=== PATIENT | female | born 1965 | race Caucasian/White ===

== ENCOUNTER 2017-03-14 18:02 | Emergency (ER) | payer OTHER ==
[~2017-03-14] VITALS: Ht 165.1 cm; Wt 68.5 kg
[~2017-03-14 18:02] MED LIST: FLUT1DSK4 IH; LORA-476 PO; METF500T PO; MSCON30 PO; PRED10TA5 PO; PRON INH; SPIMDI INH
[2017-03-14 18:29] VITALS: BP 139/80
--- NOTE | 2017-03-14 19:16 | NUR ---
PATIENT TO BED 11 AT THIS TIME.
[2017-03-14] MEDS ORDERED: CEPHALEXIN 500 MG CAP PO ONE (19:50)
[2017-03-14] MEDS ORDERED: ALBUTEROL SULFATE/IPRATROPIU 3 ML SOL IH ONE (19:50)
[2017-03-14] MEDS ORDERED: SULFAMETH/TRIMETH DS 800/160MG 1 TAB PO ONE (19:50)
[2017-03-14] MEDS ORDERED: methylPREDNISolone SS 125 MG/2 ML VIAL IM ONE (19:50)
--- NOTE | 2017-03-14 20:00 | NUR ---
51Y/F PRESENTS TO ER C/O ABCESS. PT HAS OPEN ABCESS TO LEFT ARM DRAINING PUSS, RT LEG ABCESS NO OPEN SKIN, REDDENED AROUND ABCESS. CMS INTACT. PAIN 8/10, NON RADIATING. SMALL ULCERS TO BOTH SIDES OF TONGUE PT STATES SHE HAS BROKEN TOOTH. PT TOOK MORPHINE AT HOME AROUND 11AM. PT FEELS DIZZY AND NAUSOUS, AA&OX4, IN BED, PRECISION GRINDER EXTERNAL AT BEDSIDE.
--- NOTE | 2017-03-14 20:05 | NUR ---
Breathing treatment administered at bedside by respiratory therapist.
[2017-03-14] MEDS ORDERED: LIDOCAINE/EPI 2% 1:100000 20 ML VIAL INJ ONE (20:14)
--- NOTE | 2017-03-14 20:26 | NUR ---
Dr. Alfredo at bedside for incision and drainage of abscess.
[2017-03-14 20:53] VITALS: BP 133/81
--- NOTE | 2017-03-14 20:53 | NUR ---
Patient discharged with v/s stable. Written and verbal after care instructions given and explained. Patient alert, oriented and verbalized understanding of instructions. Ambulatory with steady gait. All questions addressed prior to discharge. ID band removed. Patient advised to follow up with PMD. Rx of KEFLEX 500MG, BACTRIM 800MG given. Patient educated on indication of medication including possible reaction and side effects. Opportunity to ask questions provided and answered.
== END 2017-03-14 20:53 | disposition home or self-care (01) ==
LOC: MED 18:02
DX: L02.413 Cutaneous abscess of right upper limb (principal); L02.416 Cutaneous abscess of left lower limb; J44.9 Chronic obstructive pulmonary disease, unspecified; E11.9 Type 2 diabetes mellitus without complications; Z71.6 Tobacco abuse counseling; Z79.84 Long term (current) use of oral hypoglycemic drugs; Z79.899 Other long term (current) drug therapy; Z88.0 Allergy status to penicillin; Z88.8 Allergy status to other drugs, medicaments and biological substances
CPT/HCPCS: 10061; 94640; 96372; 99284; J2001; J2930; J7620

== ENCOUNTER 2017-05-18 08:41 | Emergency (ER) | payer OTHER ==
[~2017-05-18] VITALS: Ht 165.1 cm; Wt 68.0 kg
[2017-05-18 08:43] VITALS: BP 139/76
--- NOTE | 2017-05-18 08:52 | NUR ---
PT AMBULATED TO BED 11 Addendum: 05/18/17 at 0853 by MEDHT PT ROLLED IN WHEELCHAIR BY POTATO GRADER TO BED 11
--- NOTE | 2017-05-18 08:55 | NUR ---
patient is a 51 year old female brought in by private vehicle for c/o left leg cellulitis x 3 days. patient is alert and oriented x 4. respirations are even and unlabored. patient denies any dyspnea, n,v,d, fever or chills. per patient cough present, normal per patient. observed left leg redness, warmth to area. intact abscess observed. tender when palpated. awaiting md evaluation.
[2017-05-18] MEDS ORDERED: HYDROmorphone 1 MG/ML AMP IM ONE (09:15)
[2017-05-18] MEDS: CLINDAMYCIN 600 MG/4 ML VIAL IM ONE ×2 (09:50→09:57)
[2017-05-18] MEDS ORDERED: LIDOCAINE MPF 1% - **ER/OR** 5 ML ONE (10:28)
[2017-05-18] MEDS ORDERED: LIDOCAINE 1% 500 MG/50 ML VIAL INJ SCH (10:35)
--- NOTE | 2017-05-18 11:25 | NUR ---
Dr. Graham at bedside for I&D procedure.
[2017-05-18] MEDS ORDERED: NEOMYCIN/POLYMYXIN/BACITRACIN 0.9 GM/1 PKT TP ONE (11:33)
[2017-05-18 11:56] VITALS: BP 139/76
--- NOTE | 2017-05-18 11:57 | NUR ---
Patient discharged with v/s stable. Written and verbal after care instructions given and explained. patient's hr observed to be 118, patient is asymptomatic and states this is normal for her. Dr. Graham made aware. Patient alert, oriented and verbalized understanding of instructions. Wheel Chair Assisted with to car by caregiver. All questions addressed prior to discharge. ID band removed. Patient advised to follow up with PMD. Rx of Clindamycin, Septra, and Tramadol given. Patient educated on indication of medication including possible reaction and side effects. Educated patient on importance of follow up with primary for wound check, both patient and caregiver verbalizes understanding. Opportunity to ask questions provided and answered.
--- NOTE | 2017-05-21 16:11 | NUR ---
ADDENDUM: LT. LEG ABSCESS CX. RESULTS: MRSA. REFERRED TO DR. BRODERICK,NO FARTHER TX. PATIENT DISCHARGED WITH CLINDAMYCIN AND SEPTRA
== END 2017-05-18 11:57 | disposition home or self-care (01) ==
LOC: MED 08:41
DX: L02.416 Cutaneous abscess of left lower limb (principal); J45.909 Unspecified asthma, uncomplicated; J44.9 Chronic obstructive pulmonary disease, unspecified; E11.9 Type 2 diabetes mellitus without complications; F17.210 Nicotine dependence, cigarettes, uncomplicated; F11.90 Opioid use, unspecified, uncomplicated; F12.90 Cannabis use, unspecified, uncomplicated; Z79.899 Other long term (current) drug therapy; Z88.0 Allergy status to penicillin; Z88.5 Allergy status to narcotic agent; Z79.84 Long term (current) use of oral hypoglycemic drugs
CPT/HCPCS: 10060; 87070; 87075; 90471; 90715; 96372; 99284; J1170; J2001; J3490; 87186

== ENCOUNTER 2017-05-21 10:24 | Emergency (ER) | payer OTHER ==
[~2017-05-21] VITALS: Ht 165.1 cm; Wt 66.2 kg
[2017-05-21 11:06] VITALS: BP 119/77
--- NOTE | 2017-05-21 11:09 | NUR ---
PT AMBULATES BACK TO THE LOBBY
== END 2017-05-21 12:40 | disposition left against medical advice (07) ==
LOC: MED 10:24
DX: Z53.21 Procedure and treatment not carried out due to patient leaving prior to being seen by health care provider (principal)

== ENCOUNTER 2017-07-28 09:29 | Inpatient (IN) | payer OTHER ==
[~2017-07-28] VITALS: Ht 165.1 cm; Wt 68.9 kg
--- NOTE | 2017-07-28 09:32 | NUR ---
Patient transferred to bed 3 via wheelchair by tech. Patient accompanied by family. RN evaluating patient at bedside. Addendum: 07/28/17 at 1335 by [facility] Patient will be admitted to care of DR BLANDON. Admited to TELE. Will go to room 113. Belongings list completed. Report to FERNANDO GREGORY & MARTA GREGORY.
--- NOTE | 2017-07-28 09:32 | NUR ---
Dr. Miller evaluating patient at bedside.
[2017-07-28 09:33] VITALS: BP 167/106
--- NOTE | 2017-07-28 09:33 | NUR ---
Note undone in EDM - 07/28/17 at 0954 by [email or web address] 51/F BIB SON W/ C/O SOB X2 DAYS; PT STATES SHE WAS SEEN AT [facility] YESTERDAY FOR SAME S/SX AND WAS DISCHARGED; PT ON HOME O2 NASAL CANULA 2L. HX COPD, HTN, DM, PNA X1 MONTH AGO, BACK INJURY. DENIES N/V/D; SKIN IS PINK/WARM/DRY; AAOX4 WITH EVEN AND STEADY GAIT; LUNGS WHEEZING BL.CP <3 SEC. PT DENIES ANY FEVER, CP,OR COUGH AT THIS TIME; PATIENT STATES PAIN OF 0/10 AT THIS TIME. PATIENT POSITIONED FOR COMFORT; HOB ELEVATED; BEDRAILS UP X2; BED DOWN. ER MD MADE AWARE OF PT STATUS.
--- NOTE | 2017-07-28 09:33 | NUR ---
51/F BIB SON W/ C/O SOB X2 DAYS; PT STATES SHE WAS SEEN AT [facility] YESTERDAY FOR SAME S/SX AND WAS DISCHARGED; PT ON HOME O2 NASAL CANULA 2L. HX COPD, HTN, DM, PNA X1 MONTH AGO, BACK INJURY. DENIES N/V/D; SKIN IS PINK/WARM/DRY; AAOX4 , AMB W/ W/C; LUNGS WHEEZING BL.CP <3 SEC. PT DENIES ANY FEVER, CP,OR COUGH AT THIS TIME; PATIENT STATES PAIN OF 0/10 AT THIS TIME. PATIENT POSITIONED FOR COMFORT; HOB ELEVATED; BEDRAILS UP X2; BED DOWN. ER MD MADE AWARE OF PT STATUS.
[2017-07-28] MEDS ORDERED: MAG SULF 2000 MG/WATER PREMIX 50 ML IV ONE (09:40)
[2017-07-28] MEDS ORDERED: ALBUTEROL 0.083% 2.5 MG/3 ML NEBU INH ONE (09:40)
[2017-07-28] MEDS ORDERED: CEFEPIME 2,000 MG in DEXTROSE 5% 100 ML IV ONE (09:40)
[2017-07-28] MEDS ORDERED: methylPREDNISolone SS 125 MG/2 ML VIAL IVP ONE (09:40)
[2017-07-28] MEDS ORDERED: LEVOFLOXACIN 750 MG/D5W PREMIX 150 ML IV ONE (09:40)
[2017-07-28] MEDS ORDERED: NACL 0.9% 1,000 ML IV ONE (09:40)
[2017-07-28] MEDS ORDERED: IPRATROPIUM 0.02% 0.5 MG/2.5 ML NEBU INH ONE (09:40)
[2017-07-28] MEDS ORDERED: VANCOMYCIN 1,000 MG in DEXTROSE 5% 250 ML IV ONE (09:40)
[2017-07-28] MEDS ORDERED: ALBUTEROL SULFATE/IPRATROPIU 3 ML SOL IH ONE (09:45)
--- NOTE | 2017-07-28 09:49 | NUR ---
RT AT BEDSIDE FOR BREATHING TREATMENT.
--- NOTE | 2017-07-28 09:53 | NUR ---
PT IS AWAKE AND ALERT. NOT IN DISTRESS. PT ON 2 L NC WITH SPO2 OF 98%. TOOK O2 OFF. ON ROOM AIR PT'S SPO2 IS 97%. HHN TX OF DUONEB IS GIVEN. BS EXP WHEEZES. WILL MONITOR.
--- NOTE | 2017-07-28 10:00 | NUR ---
EKG AT BEDSIDE.
[2017-07-28] MEDS ORDERED: CEFEPIME 2,000 MG VIAL IV ONE (10:22)
[2017-07-28] MEDS ORDERED: VANCOMYCIN 1,000 MG VIAL ONE (10:24)
[2017-07-28 10:28] LABS: BASOPHILS % (AUTO) 0.2 % (0.0-2.0); HEMATOCRIT 40.8 % (36-48); LYMPHOCYTES # (AUTO) 0.5 K/uL (2.5-16.5); MEAN CORPUSCULAR HEMOGLOBIN 27 pg (27-31); MEAN CORPUSCULAR HGB CONC 32 g/dL (33-37); MEAN CORPUSCULAR VOLUME 86.1 fL (80-94); MONOCYTES # (AUTO) 0.8 K/uL (0.8-1.0); MONOCYTES % (AUTO) 4.2 % (1.7-9.3); NEUTROPHILS # (AUTO) 16.7 K/uL (1.8-7.7); NEUTROPHILS % (AUTO) 92.6 % (42.2-75.2); PLATELET COUNT (AUTO) 165 K/uL (140-450); RED BLOOD CELL COUNT(AUTO) 4.75 MIL/uL (4.20-5.40); RED CELL DISTRIBUTION WIDTH 16.3 % (11.6-13.7)
[2017-07-28 10:44] LABS: PROTHROMBIN TIME 10.9 secs (10.8-13.4)
[2017-07-28 10:58] LABS: ALBUMIN 3.1 g/dL (3.4-5.0); ANION GAP 10.7 (8-16); CARBON DIOXIDE 33.5 mmol/L (21-32); CREATININE 1.1 mg/dL (0.6-1.3); MAGNESIUM 2.3 mg/dL (1.8-2.4); PHOSPHORUS 3.7 mg/dL (2.5-4.9); POTASSIUM 5.2 mmol/L (3.5-5.1); TOTAL BILIRUBIN 0.3 mg/dL (0.0-1.0)
[2017-07-28 11:15] LABS: APPEARANCE,URINE SL CLOUDY (CLEAR); BILIRUBIN,URINE NEGATIVE (NEGATIVE); BLOOD, URINE NEGATIVE (NEGATIVE); COLOR,URINE YELLOW (YELLOW); LEUKOCYTE ESTERASE ,URINE NEGATIVE (NEGATIVE); NITRITE, URINE NEGATIVE (NEGATIVE); UGLUCOSE NEGATIVE (NEGATIVE)
[2017-07-28] MEDS ORDERED: ONDANSETRON 4 MG/2 ML VIAL IVP ONE (11:15)
[2017-07-28] MEDS ORDERED: MORPHINE SULFATE 4 MG/ML SYR IVP ONE (11:15)
[2017-07-28 11:22] LABS: BARBITURATE, URINE NEG. ng/ml (NEG <=200); BENZODIAZEPINE, URINE NEG. ng/mL (NEG <=200); CANNABINOID, URINE NEG. ng/mL (NEG <=50); COCAINE, URINE NEG. ng/mL (NEG <=300); OPIATE, URINE POS. ng/mL (NEG <=2000); PHENCYCLIDINE SCREEN,URINE NEG. ng/mL (NEG <=25)
--- NOTE | 2017-07-28 12:24 | NUR ---
LACTIC ACID 5.2 H ; REPORT TO DR SOLANO .
[2017-07-28] MEDS ORDERED: NACL 0.9% 2,000 ML IV ONE (12:25)
[2017-07-28] MEDS: NACL 0.9% 1,000 ML IV SCH ×2 (12:43→22:43)
[2017-07-28] MEDS ORDERED: ONDANSETRON 4 MG/2 ML VIAL IVP PRN (12:45)
[2017-07-28] MEDS ORDERED: ACETAMINOPHEN 325 MG TAB PO PRN (12:45)
[2017-07-28] MEDS ORDERED: HYDROcodone/APAP 5/325 MG 1 TAB TAB PO PRN ×2 (12:45)
[2017-07-28] MEDS ORDERED: LORazepam 1 MG TAB PO PRN (12:45)
--- NOTE | 2017-07-28 13:13 | NUR ---
ABG DONE WITH NO INCIDENT. RESULTS GIVEN TO ED SECHRIST.
[2017-07-28 14:00] VITALS: BP 152/106
--- NOTE | 2017-07-28 14:00 | NUR ---
PT ADMITTED TO [facility] FROM ER . ER NURSE SUMMER GAVE REPORT AT BEDSIDE. PT AMBULATED TO BED FROM [facility]. PT ANXIOUS. APPLIED O2 NC AT 2LPM . O2 SAT 98%. RR 26 AT TIME. PT LUNGS SOUND WHEEZING BILATERALLY AT UPPER LOBES. PT APPEARED FLUSHED, HAS MULTIPLE BRUISES BUE AND BLE. 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 OBTAINED MEDICAL HX FROM PT AND PT MANUFACTURING WORKER. PT USED RESTROOM FOR URINATION. VOIDED X1. PT PUT BACK ON BED. PT HAS NO SIGN OF DISTRESS ATH THIS TIME. PT ON CONTINUOUS PULSE OXIMETER. CALL LIGHT WITHIN PT REACH. PT PROVIDED EDUCATION REGARDING COPD AND SOB. WILL CONTINUE TO MONITOR.
[2017-07-28] MEDS: IPRATROPIUM 0.02% 0.5 MG/2.5 ML NEBU IH SCH ×2 (14:07→19:49)
[2017-07-28] MEDS: ALBUTEROL 0.083% 2.5 MG/3 ML NEBU IH SCH ×2 (14:08→19:49)
[2017-07-28] MEDS: MORPHINE TAB ER 30 MG TABER PO SCH ×2 (14:17→17:30)
[2017-07-28 16:00] VITALS: BP 158/97
[2017-07-28] MEDS ORDERED: METO-485 PO (17:17)
[2017-07-28] MEDS ORDERED: LORA-476 PO (17:17)
[2017-07-28] MEDS ORDERED: PRED20TA5 PO (17:17)
[2017-07-28] MEDS ORDERED: HAL1 PO (17:17)
[2017-07-28] MEDS ORDERED: CALER120 PO (17:17)
[2017-07-28] MEDS: LEVOFLOXACIN 500 MG/D5W PREMIX 100 ML IV SCH (17:28)
[2017-07-28] MEDS: methylPREDNISolone SS 125 MG/2 ML VIAL IVP SCH ×2 (17:30→23:36)
[2017-07-28] MEDS ORDERED: INSULIN LISPRO SLIDING SCALE 100 UNITS/ML VIAL SUBQ PRN (17:50)
--- NOTE | 2017-07-28 19:05 | NUR ---
ENDORSED PT TO TIE IN MACHINE OPERATOR NURSE AT BEDSIDE FOR CONTINUITY OF CARE. PT IN STABLE CONDITION.
--- NOTE | 2017-07-28 19:05 | NUR ---
RECEIVED PATIENT LYING IN BED ASLEEP. BED IN LOW POSITION. BED ALARM ON. CALL LIGHT WITHIN REACH. WILL CONTINUE TO MONITOR.
[2017-07-28 20:00] VITALS: BP 139/88
[2017-07-28] MEDS: BLOOD GLUCOSE MONITORING 1 DEV DEV FS SCH (21:18)
--- NOTE | 2017-07-28 21:20 | NUR ---
ASSISTING PATIENT TO THE BATHROOM. PATIENT IS AMBULATORY, COOPERATIVE. DISCUSS ABOUT THE PLAN OF CARE. WILL CONTINUE TO MONITOR.
[2017-07-29] VITALS: BP 156/108
[2017-07-29] MEDS: ALBUTEROL 0.083% 2.5 MG/3 ML NEBU IH SCH ×3 (02:12→13:25)
[2017-07-29] MEDS: IPRATROPIUM 0.02% 0.5 MG/2.5 ML NEBU IH SCH ×3 (02:12→13:24)
[2017-07-29] MEDS: NACL 0.9% 1,000 ML IV SCH (03:26)
[2017-07-29 04:00] VITALS: BP 150/105
--- NOTE | 2017-07-29 05:45 | NUR ---
VITAL SIGN TAKEN AND MEDICATION GIVEN. BREATHING DONE BY RT. WILL CONTINUE TO MONITOR.
[2017-07-29] MEDS: ALBUTEROL 0.083% 2.5 MG/3 ML NEBU IH PRN ×2 (05:55→16:02)
[2017-07-29] MEDS: methylPREDNISolone SS 125 MG/2 ML VIAL IVP SCH ×2 (06:02→12:30)
[2017-07-29] MEDS: BLOOD GLUCOSE MONITORING 1 DEV DEV FS SCH ×2 (06:41→11:41)
--- NOTE | 2017-07-29 07:26 | NUR ---
ENDORSEMENT GIVEN TO AM SHIFT NURSE FOR CONTINUITY OF CARE. PATIENT IN STABLE CONDITION.
--- NOTE | 2017-07-29 07:30 | NUR ---
RECEIVED REPORT FROM CANVAS GOODS SUPERVISOR NURSE. PT IS SLEEPING IN BED BUT EASILY AWAKEN, PT AAOX4, AMBULATORY, NO S/S OF RESPIRATORY DISTRESS OR DISCOMFORT NOTED, IV IS ON THE RIGHT HAND, PATENT, INTACT, FLUSHING WELL, PT IS ON O2 2L NC, DISCUSSED PLAN OF CARE WITH PT, PT VERBALIZED UNDERSTANDING, CALL LIGHT WITHIN REACH, WILL CONTINUE TO MONITOR.
[2017-07-29 08:00] VITALS: BP 163/108
[2017-07-29] MEDS: MORPHINE TAB ER 30 MG TABER PO SCH ×2 (09:23→12:30)
--- NOTE | 2017-07-29 09:23 | NUR ---
DUE MEDICATIONS GIVEN, PT TOLERATED WELL, CALL LIGHT WITHIN REACH, WILL CONTINUE TO MONITOR.
--- NOTE | 2017-07-29 11:00 | NUR ---
PATIENT SLEEPING IN BED AT THIS TIME. CALL LIGHT WITHIN REACH.
[2017-07-29] MEDS ORDERED: ROBAC PO (11:31)
[2017-07-29 12:00] VITALS: BP 155/106
[2017-07-29] MEDS ORDERED: hydrALAZINE 25 MG TAB PO PRN (12:05)
[2017-07-29] MEDS ORDERED: SODIUM POLYSTYRENE 15 GM/60 ML UDBTL PO SCH (12:22)
--- NOTE | 2017-07-29 12:30 | NUR ---
DUE MEDICATIONS GIVEN, PT TOLERATED WELL, CALL LIGHT WITHIN REACH.
[2017-07-29 13:43] LABS: BASOPHILS % (AUTO) 0.1 % (0.0-2.0); HEMATOCRIT 37.4 % (36-48); HEMOGLOBIN 11.8 g/dL (12.0-16.0); LYMPHOCYTES # (AUTO) 0.6 K/uL (2.5-16.5); LYMPHOCYTES % (AUTO) 2.8 % (20.5-51.1); MEAN CORPUSCULAR HEMOGLOBIN 27 pg (27-31); MEAN CORPUSCULAR HGB CONC 32 g/dL (33-37); MEAN CORPUSCULAR VOLUME 85.4 fL (80-94); MONOCYTES # (AUTO) 0.4 K/uL (0.8-1.0); MONOCYTES % (AUTO) 2.2 % (1.7-9.3); NEUTROPHILS # (AUTO) 18.7 K/uL (1.8-7.7); NEUTROPHILS % (AUTO) 94.9 % (42.2-75.2); PLATELET COUNT (AUTO) 156 K/uL (140-450); RED BLOOD CELL COUNT(AUTO) 4.39 MIL/uL (4.20-5.40); RED CELL DISTRIBUTION WIDTH 16.1 % (11.6-13.7); WHITE BLOOD COUNT (AUTO) 19.7 K/uL (4.8-10.8)
--- NOTE | 2017-07-29 13:49 | NUR ---
[address] BLANDON REGARDING HOSPICE AND DISCHARGE ORDER. PER DR BLANDON PT HAS BEEN ON HOSPICE SERVICES PRIOR AND HE DID SPEAK WITH PT REGARDING HOSPICE SERVICE AT THIS TIME. HE STATED THAT PT IS IN AGREEMENT WITH HOSPICE EVALUATION AND THAT PT CAN BE DISCHARGE WITH HOSPICE FOLLOW UP AT HOME. CHARGE NURSE JUAN A SHUKLA.
--- NOTE | 2017-07-29 14:00 | NUR ---
FAXED FACE SHEET, H & P AND LABS TO [facility] FROM [facility] TO [phone], PHONE NUMBER IS [phone], IN CASE THERE ARE ANY QUESTIONS.
[2017-07-29 14:11] LABS: ALBUMIN 2.7 g/dL (3.4-5.0); ANION GAP 10.4 (8-16); CARBON DIOXIDE 29.4 mmol/L (21-32); POTASSIUM 3.8 mmol/L (3.5-5.1); TOTAL BILIRUBIN 0.3 mg/dL (0.0-1.0)
[2017-07-29] MEDS: LEVOFLOXACIN 500 MG/D5W PREMIX 100 ML IV SCH (14:30)
--- NOTE | 2017-07-29 15:00 | NUR ---
CALLED DR. BLANDON TO LET HIM KNOW THE PATIENT LACTIC ACID WAS 3.7. PER DR. BLANDON ITS OKAY TO DISCHARGE PATIENT.
--- NOTE | 2017-07-29 15:30 | NUR ---
PATIENT ASKED ME TO CALL HER FRIEND SANTA TO LET HIM KNOW SHE WAS BEING DISCHARGED AND ASK HIM TO PICK HER UP. I DID TALK TO SANTA, HE SAID HE WOULD BE HERE IN ABOUT HALF HOUR.
[2017-07-29 16:00] VITALS: BP 155/91
--- NOTE | 2017-07-29 16:30 | NUR ---
PATIENT DISCHARGE INSTRUCTIONS GIVEN. PATIENT WAS INFORMED THAT HOSPICE WOULD BE CONTACTING HER TO FOLLOW UP. ID WRIST BAND REMOVED, IV REMOVED, CATHETER TIP INTACT. PT ACCOMPANIED BY HER FRIEND (SANTA) UPON DISCHARGE.
--- NOTE | 2017-07-30 17:35 | NUR ---
RETRO FAXED ER REPORT AND H&P TO [facility]. NO DISCHARGE SUMMARY. [phone] PHONE LORI [phone]
== END 2017-07-29 16:30 | disposition hospice, home (50) | DRG 139 ==
LOC: MED 09:29 → MTU 12:55
PROVIDERS: ADMIT Hospitalist; ATTEND Hospitalist
DX: J18.9 Pneumonia, unspecified organism (principal); J96.21 Acute and chronic respiratory failure with hypoxia; R65.11 Systemic inflammatory response syndrome (SIRS) of non-infectious origin with acute organ dysfunction; E86.0 Dehydration; J44.0 Chronic obstructive pulmonary disease with (acute) lower respiratory infection; E87.5 Hyperkalemia; Z88.6 Allergy status to analgesic agent; Z88.0 Allergy status to penicillin; J44.1 Chronic obstructive pulmonary disease with (acute) exacerbation; F17.210 Nicotine dependence, cigarettes, uncomplicated; F15.10 Other stimulant abuse, uncomplicated; J96.22 Acute and chronic respiratory failure with hypercapnia; E88.09 Other disorders of plasma-protein metabolism, not elsewhere classified; E44.1 Mild protein-calorie malnutrition; Z68.25 Body mass index [BMI] 25.0-25.9, adult; Z51.5 Encounter for palliative care; Z79.899 Other long term (current) drug therapy
CPT/HCPCS: 36415; 71045; 80053; 80305; 81003; 81025; 82948; 83605; 83735; 84100; 84484; 85025; 85610; 85730; 87040; 87081; 93005; 94640; 96365; 96367; 96375; 99285; J0692; J1644; J1956; J2270; J2405; J2930; J3370; J3475; J7030; J7060; J7613; J7620; J7644; Q0092

== ENCOUNTER 2020-06-11 16:30 | Emergency (ER) | payer OTHER ==
[~2020-06-11] VITALS: Ht 165.1 cm; Wt 59.0 kg
[~2020-06-11 16:30] MED LIST changes: +CALER120 PO; +HAL1 PO; +METO-485 PO; +PRED20TA5 PO; +ROBAC PO
[2020-06-11 16:48] VITALS: BP 121/73
[2020-06-11 19:20] LABS: BASOPHILS # (AUTO) 0.1 K/uL (0.00-0.22); BASOPHILS % (AUTO) 0.9 % (0.0-2.0); EOSINOPHILS # (AUTO) 0.2 K/uL (0-0.4); EOSINOPHILS % (AUTO) 1.7 % (0.0-4.0); HEMATOCRIT 38.5 % (36-48); HEMOGLOBIN 12.3 g/dL (12.0-16.0); LYMPHOCYTES % (AUTO) 16.9 % (20.5-51.1); MEAN CORPUSCULAR HEMOGLOBIN 26 pg (27-31); MEAN CORPUSCULAR HGB CONC 32 g/dL (33-37); MEAN CORPUSCULAR VOLUME 81.5 fL (80-94); MONOCYTES # (AUTO) 0.8 K/uL (0.8-1.0); MONOCYTES % (AUTO) 6.8 % (1.7-9.3); NEUTROPHILS # (AUTO) 8.9 K/uL (1.8-7.7); NEUTROPHILS % (AUTO) 73.7 % (42.2-75.2); PLATELET COUNT (AUTO) 234 K/uL (140-450); RED BLOOD CELL COUNT(AUTO) 4.72 MIL/uL (4.20-5.40); RED CELL DISTRIBUTION WIDTH 16.6 % (11.6-13.7); WHITE BLOOD COUNT (AUTO) 12.1 K/uL (4.8-10.8)
[2020-06-11 19:22] LABS: APPEARANCE,URINE HAZY (CLEAR); BILIRUBIN,URINE NEGATIVE (NEGATIVE); BLOOD, URINE NEGATIVE (NEGATIVE); COLOR,URINE YELLOW (YELLOW); LEUKOCYTE ESTERASE ,URINE NEGATIVE (NEGATIVE); NITRITE, URINE NEGATIVE (NEGATIVE); UGLUCOSE NEGATIVE (NEGATIVE)
[2020-06-11 19:32] LABS: ALBUMIN 3.3 g/dL (3.4-5.0); ANION GAP 8.2 (8-16); CARBON DIOXIDE 35.2 mmol/L (21-32); POTASSIUM 4.4 mmol/L (3.5-5.1); TOTAL BILIRUBIN 0.2 mg/dL (0.0-1.0)
[2020-06-11 21:34] VITALS: BP 126/93
== END 2020-06-11 22:25 | disposition home or self-care (01) ==
LOC: MED 16:30
DX: U07.1 COVID-19 (principal); R10.9 Unspecified abdominal pain; I13.0 Hypertensive heart and chronic kidney disease with heart failure and stage 1 through stage 4 chronic kidney disease, or unspecified chronic kidney disease; E11.22 Type 2 diabetes mellitus with diabetic chronic kidney disease; N18.9 Chronic kidney disease, unspecified; J44.1 Chronic obstructive pulmonary disease with (acute) exacerbation; Z79.899 Other long term (current) drug therapy; Z79.84 Long term (current) use of oral hypoglycemic drugs
CPT/HCPCS: 36415; 80053; 81003; 81025; 83690; 85025; 99284

== ENCOUNTER 2021-11-07 17:53 | Emergency (ER) | payer OTHER ==
[~2021-11-07] VITALS: Ht 165.1 cm; Wt 77.1 kg
[2021-11-07 17:53] VITALS: BP 158/108
[~2021-11-07 17:53] MED LIST changes: -HAL1 PO; +HALO1TAB99 PO; +METF-346 PO; -METF500T PO
--- NOTE | 2021-11-07 17:55 | NUR ---
BEATRICE Sheikh, via gurney to bed 01.
--- NOTE | 2021-11-07 18:06 | NUR ---
XRAY AT BEDSIDE
--- NOTE | 2021-11-07 18:15 | NUR ---
56YO FEMALE PT BIBA FROM HOME C/O SOB [id number] W/ WORSENING TODAY. [facility] REPORTS GIVING PT BREATHING TX PRIOR TO ARRIVAL AND HAD PT ON 10L VIA NON BREATHER. UPON ARRIVAL PT HYPERVENTILATING W/ EVEN RESPIRATIONS. LYNNE WHEEEZING. PT STATES PRESSURED 6/10 CHEST PAIN W/O RADIATION. PT UPPER ABDOMEN PRESENTS WITH DISTENTION , STATES ITS DUE TO HERNIA. PT AMBULATORY USING CANE AND STATES NORMALLY BEING ON 2L AT HOME. DENIES N/V/D OR FEVERS. 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 BED AT LOWEST POSITION , BED RAILS UPX2. HX:COPD, DM, HTN, ABD HERNIA, CHRONIC BACK PAIN ALLERGIES:ASPIRIN, PCN
--- NOTE | 2021-11-07 19:22 | NUR ---
REPORT GIVEN TO JESSICA BUTLER. ALL QUESTIONS ANSWERED. TRANSFER OF CARE AT THIS TIME
--- NOTE | 2021-11-07 20:00 | NUR ---
Dr. Salas examining patient.
[2021-11-07] MEDS ORDERED: PRED20TA5 PO (20:07)
[2021-11-07] MEDS ORDERED: ALBU0.0912 INH (20:07)
[2021-11-07 20:55] VITALS: BP 134/88
--- NOTE | 2021-11-07 20:56 | NUR ---
Patient discharged with v/s stable. Written and verbal after care instructions given and explained. Patient alert, oriented and verbalized understanding of instructions. Ambulatory with steady gait. All questions addressed prior to discharge. ID band removed. Patient advised to follow up with PMD. Rx of ALBUTEROL SULFATE, PRESISONE given. Opportunity to ask questions provided and answered.
--- NOTE | 2021-11-07 20:57 | NUR ---
The patient's care was reviewed and supervised by Che Muniz RN.
== END 2021-11-07 20:56 | disposition home or self-care (01) ==
LOC: MED 17:53
DX: J44.1 Chronic obstructive pulmonary disease with (acute) exacerbation (principal); I50.9 Heart failure, unspecified; I10 Essential (primary) hypertension; E11.9 Type 2 diabetes mellitus without complications; F17.200 Nicotine dependence, unspecified, uncomplicated; Z79.4 Long term (current) use of insulin; Z79.899 Other long term (current) drug therapy; Z90.49 Acquired absence of other specified parts of digestive tract; Z88.0 Allergy status to penicillin; Z79.82 Long term (current) use of aspirin
CPT/HCPCS: 71045; 93005; 99285

== ENCOUNTER 2021-11-29 07:47 | Emergency (ER) | payer OTHER ==
[~2021-11-29] VITALS: Ht 165.1 cm; Wt 68.7 kg
[~2021-11-29 07:47] MED LIST changes: +ALBU0.0912 INH
--- NOTE | 2021-11-29 07:47 | NUR ---
PT BEATRICE MARIO, VIA GURNEY TO BED 09.
[2021-11-29 07:51] VITALS: BP 144/87
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
--- NOTE | 2021-11-29 08:00 | NUR ---
DR LAZARO AT BEDSIDE
[2021-11-29] MEDS ORDERED: IPRATROPIUM 0.02% 0.5 MG/2.5 ML NEBU INH ONE (08:10)
[2021-11-29] MEDS ORDERED: ALBUTEROL 0.083% 2.5 MG/3 ML NEBU INH ONE (08:10)
[2021-11-29] MEDS ORDERED: NACL 0.9% 500 ML IV ONE (08:10)
[2021-11-29] MEDS ORDERED: methylPREDNISolone SS 125 MG/2 ML VIAL IVP ONE (08:10)
[2021-11-29] MEDS ORDERED: LORazepam 2 MG/ML VIAL IVP ONE (08:10)
--- NOTE | 2021-11-29 08:26 | NUR ---
RT AT BEDSIDE
--- NOTE | 2021-11-29 08:26 | NUR ---
X-Ray at bedside.
[2021-11-29 08:38] LABS: BASOPHILS # (AUTO) 0.1 K/uL (0.00-0.22); BASOPHILS % (AUTO) 0.8 % (0.0-2.0); EOSINOPHILS # (AUTO) 0.1 K/uL (0-0.4); EOSINOPHILS % (AUTO) 1.3 % (0.0-4.0); HEMATOCRIT 30.5 % (36-48); HEMOGLOBIN 9.7 g/dL (12.0-16.0); LYMPHOCYTES # (AUTO) 1.3 K/uL (2.5-16.5); LYMPHOCYTES % (AUTO) 13.6 % (20.5-51.1); MEAN CORPUSCULAR HEMOGLOBIN 27 pg (27-31); MEAN CORPUSCULAR HGB CONC 32 g/dL (33-37); MEAN CORPUSCULAR VOLUME 83.6 fL (80-94); MONOCYTES # (AUTO) 0.8 K/uL (0.8-1.0); MONOCYTES % (AUTO) 8.4 % (1.7-9.3); NEUTROPHILS # (AUTO) 7.5 K/uL (1.8-7.7); NEUTROPHILS % (AUTO) 75.9 % (42.2-75.2); PLATELET COUNT (AUTO) 242 K/uL (140-450); RED BLOOD CELL COUNT(AUTO) 3.64 MIL/uL (4.20-5.40); RED CELL DISTRIBUTION WIDTH 16.7 % (11.6-13.7); WHITE BLOOD COUNT (AUTO) 9.8 K/uL (4.8-10.8)
--- NOTE | 2021-11-29 08:40 | NUR ---
BREATHING TX GIVEN AND ABG DRAW DRAWN. GAVE ABG RESULTS TO DR. LAZARO. DR HAD NO NEW ORDERS FOR PT AND WANTED TO MONITOR BEFORE ANY NEW ORDERS WERE MADE.
[2021-11-29 09:17] LABS: ALBUMIN 2.9 g/dL (3.4-5.0); ANION GAP 6.9 (8-16); CREATININE 1.1 mg/dL (0.6-1.3); POTASSIUM 3.2 mmol/L (3.5-5.1); TOTAL BILIRUBIN 0.2 mg/dL (0.0-1.0)
[2021-11-29 09:18] LABS: CARBON DIOXIDE 41.3 mmol/L (21-32)
--- NOTE | 2021-11-29 10:11 | NUR ---
PT PULLED OUT OWN IV, STATING THAT SHE "WANTS TO GO HOME" AND THAT SHE "DOESNT GIVE A SHIT", DR LAZARO MADE AWARE
[2021-11-29] MEDS ORDERED: PRED20TA5 PO (10:13)
[2021-11-29] MEDS ORDERED: LEVO-481 PO (10:13)
--- NOTE | 2021-11-29 10:23 | NUR ---
Patient does not wish to proceed with medical care recommended by DR LAZARO. Patient given information related to possible complications, up to and including , which could occur as a result of leaving hospital at this time. Patient verbalizes understanding of risks involved leaving against medical advice. Patient has signed AMA form.
== END 2021-11-29 10:23 | disposition left against medical advice (07) ==
LOC: MED 07:47
DX: J44.1 Chronic obstructive pulmonary disease with (acute) exacerbation (principal); E87.6 Hypokalemia; F15.10 Other stimulant abuse, uncomplicated; E87.2 Acidosis; F17.200 Nicotine dependence, unspecified, uncomplicated; I11.0 Hypertensive heart disease with heart failure; I50.9 Heart failure, unspecified; E11.9 Type 2 diabetes mellitus without complications; Z90.49 Acquired absence of other specified parts of digestive tract; Z79.899 Other long term (current) drug therapy; Z79.891 Long term (current) use of opiate analgesic; Z79.2 Long term (current) use of antibiotics; Z88.0 Allergy status to penicillin; Z88.6 Allergy status to analgesic agent
CPT/HCPCS: 36415; 71045; 80053; 83605; 83880; 84484; 85025; 87040; 93005; 96361; 96374; 96375; 99285; J2060; J2930; J7030; J7613; J7644

== ENCOUNTER 2021-12-09 17:32 | Emergency (ER) | payer OTHER ==
[~2021-12-09] VITALS: Ht 165.1 cm; Wt 61.2 kg
[~2021-12-09 17:32] MED LIST changes: +LEVO-481 PO
[2021-12-09 17:45] VITALS: BP 140/93
--- NOTE | 2021-12-09 18:27 | NUR ---
DR PERRY AT BEDSIDE
--- NOTE | 2021-12-09 18:30 | NUR ---
56 Y/O FEMALE BIBA FROM HOME C/O SOB, [id number] ALLERGY: PCN, ASA PMH: COPD, HTN, DM
[2021-12-09] MEDS ORDERED: ALBUTEROL SULFATE/IPRATROPIU 3 ML SOL IH ONE (18:35)
[2021-12-09] MEDS ORDERED: predniSONE 20 MG TAB PO ONE (18:35)
--- NOTE | 2021-12-09 18:55 | NUR ---
DR PERRY AT BEDSIDE FOR PRITI GUIDED IV
--- NOTE | 2021-12-09 19:27 | NUR ---
RT AT BEDSIDE
[2021-12-09 19:32] LABS: BASOPHILS # (AUTO) 0.1 K/uL (0.00-0.22); BASOPHILS % (AUTO) 0.8 % (0.0-2.0); EOSINOPHILS # (AUTO) 0.2 K/uL (0-0.4); EOSINOPHILS % (AUTO) 1.3 % (0.0-4.0); HEMATOCRIT 31.6 % (36-48); HEMOGLOBIN 9.9 g/dL (12.0-16.0); LYMPHOCYTES # (AUTO) 1.6 K/uL (2.5-16.5); LYMPHOCYTES % (AUTO) 12.8 % (20.5-51.1); MEAN CORPUSCULAR HEMOGLOBIN 26 pg (27-31); MEAN CORPUSCULAR HGB CONC 31 g/dL (33-37); MEAN CORPUSCULAR VOLUME 82.5 fL (80-94); MONOCYTES # (AUTO) 0.8 K/uL (0.8-1.0); MONOCYTES % (AUTO) 6.8 % (1.7-9.3); NEUTROPHILS # (AUTO) 9.6 K/uL (1.8-7.7); NEUTROPHILS % (AUTO) 78.3 % (42.2-75.2); PLATELET COUNT (AUTO) 232 K/uL (140-450); RED BLOOD CELL COUNT(AUTO) 3.83 MIL/uL (4.20-5.40); WHITE BLOOD COUNT (AUTO) 12.2 K/uL (4.8-10.8)
[2021-12-09 20:00] LABS: ALBUMIN 2.5 g/dL (3.4-5.0); ANION GAP 6.1 (8-16); CARBON DIOXIDE 37.1 mmol/L (21-32); CREATININE 0.8 mg/dL (0.6-1.3); POTASSIUM 3.2 mmol/L (3.5-5.1); TOTAL BILIRUBIN 0.3 mg/dL (0.0-1.0)
[2021-12-09] MEDS ORDERED: POTASSIUM CHLORIDE 10 MEQ TABER PO ONE (20:05)
[2021-12-09] MEDS ORDERED: AZITHROMYCIN 250 MG TAB PO ONE (20:10)
--- NOTE | 2021-12-09 20:25 | NUR ---
PT'S A/OX3, DENIES PAIN. ASKING FOR FOOD, DR. PERRY SAID OJK TO GIVE FOOD. GIVEN SANDWICH AND APPLE JUICE. SITTING ON THE BEDSIDE WHILE EATING. NO SWALLOWING PROBLEM. STABLE VITAL SIGNS.
[2021-12-09] MEDS ORDERED: PRED20TA5 PO (22:27)
[2021-12-09] MEDS ORDERED: AZIT250T11 PO (22:28)
--- NOTE | 2021-12-09 22:33 | NUR ---
Patient signs AMA.
--- NOTE | 2021-12-10 00:18 | NUR ---
Patient does not wish to proceed with medical care recommended by DR PERRY. Patient given information related to possible complications, up to and including , which could occur as a result of leaving hospital at this time. Patient verbalizes understanding of risks involved leaving against medical advice. Patient has signed AMA form.
== END 2021-12-09 22:33 | disposition left against medical advice (07) ==
LOC: MED 17:32
DX: J44.1 Chronic obstructive pulmonary disease with (acute) exacerbation (principal); I10 Essential (primary) hypertension; I50.9 Heart failure, unspecified; E11.9 Type 2 diabetes mellitus without complications; Z79.4 Long term (current) use of insulin; F17.210 Nicotine dependence, cigarettes, uncomplicated; Z79.899 Other long term (current) drug therapy; Z88.0 Allergy status to penicillin; Z79.82 Long term (current) use of aspirin
CPT/HCPCS: 36415; 71045; 80053; 83880; 84484; 85025; 93005; 94640; 99285; J7512; Q0092

== ENCOUNTER 2021-12-20 22:58 | Emergency (ER) | payer OTHER ==
[~2021-12-20] VITALS: Ht 165.1 cm; Wt 63.5 kg
[2021-12-20 22:58] VITALS: BP 142/80
[~2021-12-20 22:58] MED LIST changes: +AZIT250T11 PO
[2021-12-20] MEDS ORDERED: predniSONE 20 MG TAB PO ONE (23:05)
--- NOTE | 2021-12-20 23:05 | NUR ---
PT TAKEN TO BED 3
--- NOTE | 2021-12-21 02:44 | NUR ---
Dr. Salas examining patient.
[2021-12-21] MEDS ORDERED: ALBU0.0912 INH (03:04)
[2021-12-21] MEDS ORDERED: PRED20TA5 PO (03:04)
--- NOTE | 2021-12-21 03:19 | NUR ---
Called caregiver Uriel @ [phone] for transportation. Stated he will arrive within 1 hour.
[2021-12-21 04:50] VITALS: BP 132/86
== END 2021-12-21 04:49 | disposition home or self-care (01) ==
LOC: MED 22:58
DX: J44.1 Chronic obstructive pulmonary disease with (acute) exacerbation (principal); I11.0 Hypertensive heart disease with heart failure; I50.9 Heart failure, unspecified; E11.9 Type 2 diabetes mellitus without complications; I10 Essential (primary) hypertension; F17.210 Nicotine dependence, cigarettes, uncomplicated; Z90.49 Acquired absence of other specified parts of digestive tract; Z79.899 Other long term (current) drug therapy; Z79.1 Long term (current) use of non-steroidal anti-inflammatories (NSAID); Z79.2 Long term (current) use of antibiotics; Z88.0 Allergy status to penicillin; Z88.6 Allergy status to analgesic agent
CPT/HCPCS: 99285; J7512

== ENCOUNTER 2022-01-01 12:20 | Emergency (ER) | payer OTHER ==
[~2022-01-01] VITALS: Ht 162.6 cm; Wt 70.3 kg
[2022-01-01 12:21] VITALS: BP 129/85
[2022-01-01 13:55] VITALS: BP 135/81
[2022-01-01] MEDS ORDERED: LOPE-289 PO (14:00)
== END 2022-01-01 14:10 | disposition home or self-care (01) ==
LOC: MED 12:20
DX: J44.1 Chronic obstructive pulmonary disease with (acute) exacerbation (principal); R19.7 Diarrhea, unspecified; I11.0 Hypertensive heart disease with heart failure; I50.9 Heart failure, unspecified; E11.9 Type 2 diabetes mellitus without complications; F17.210 Nicotine dependence, cigarettes, uncomplicated; Z90.49 Acquired absence of other specified parts of digestive tract; Z79.899 Other long term (current) drug therapy; Z79.2 Long term (current) use of antibiotics; Z79.891 Long term (current) use of opiate analgesic; Z88.0 Allergy status to penicillin; Z88.6 Allergy status to analgesic agent
CPT/HCPCS: 71045; 99283; Q0092

== ENCOUNTER 2022-01-09 16:31 | Emergency (ER) | payer OTHER ==
[~2022-01-09] VITALS: Ht 162.6 cm; Wt 70.3 kg
[~2022-01-09 16:31] MED LIST changes: +LOPE-289 PO
--- NOTE | 2022-01-09 16:34 | NUR ---
BIBA TO ER BED 9 ALS
[2022-01-09 16:44] VITALS: BP 147/98
--- NOTE | 2022-01-09 16:51 | NUR ---
Note undone in EDM - 01/09/22 at 1653 by [email or web address] 56 y/o female biba from home, c/o respiratory distress, auditory rales, 89% ra at home with chronic bl leg pain. nebilzer tx given en route, pt now saturation at 97% nc 2L. a&ox4, does not ambulate at this time. admits to smoking a cigarette prior to arrival. lung sound rales in bl lower lobes. ermd ,geetha pmh: copd, dm2, chf allergy: penicillin, aspirin med: denies
--- NOTE | 2022-01-09 16:53 | NUR ---
56 y/o female biba from home, c/o respiratory distress, auditory rales, 89% ra at home with chronic bl leg pain. nebilzer tx given en route, pt now saturation at 97% nc 2L. a&ox4, does not ambulate at this time. admits to smoking a cigarette prior to arrival. lung sound rales in bl lower lobes. ermd made aware. pmh: copd, dm2, chf allergy: penicillin, aspirin med: denies
[2022-01-09] MEDS ORDERED: methylPREDNISolone SS 125 MG/2 ML VIAL IVP ONE (16:55)
[2022-01-09] MEDS ORDERED: NACL 0.9% 500 ML IV ONE (16:55)
[2022-01-09] MEDS ORDERED: DOXYCYCLINE 100 MG in DEXTROSE 5% 100 ML IV SCH (16:55)
[2022-01-09] MEDS ORDERED: ALBUTEROL 0.083% 2.5 MG/3 ML NEBU INH ONE (16:55)
--- NOTE | 2022-01-09 17:00 | NUR ---
unable to establish iv access at this time
[2022-01-09 17:18] LABS: BASOPHILS # (AUTO) 0.2 K/uL (0.00-0.22); EOSINOPHILS # (AUTO) 0.1 K/uL (0-0.4); HEMATOCRIT 36.4 % (36-48); HEMOGLOBIN 11.7 g/dL (12.0-16.0); LYMPHOCYTES # (AUTO) 1.8 K/uL (2.5-16.5); LYMPHOCYTES % (AUTO) 11.5 % (20.5-51.1); MEAN CORPUSCULAR HEMOGLOBIN 26 pg (27-31); MEAN CORPUSCULAR HGB CONC 32 g/dL (33-37); MONOCYTES # (AUTO) 0.7 K/uL (0.8-1.0); MONOCYTES % (AUTO) 4.3 % (1.7-9.3); NEUTROPHILS # (AUTO) 12.6 K/uL (1.8-7.7); NEUTROPHILS % (AUTO) 82.2 % (42.2-75.2); PLATELET COUNT (AUTO) 165 K/uL (140-450); RED BLOOD CELL COUNT(AUTO) 4.55 MIL/uL (4.20-5.40); RED CELL DISTRIBUTION WIDTH 18.4 % (11.6-13.7); WHITE BLOOD COUNT (AUTO) 15.3 K/uL (4.8-10.8)
--- NOTE | 2022-01-09 17:27 | NUR ---
[facility] THERAPY AND RESPIRATORY DRUGS GIVEN ORDERED ENCOURAGED PATIENT FOR DEEP BREATHING AND COUGH
[2022-01-09 17:36] LABS: ALBUMIN 2.7 g/dL (3.4-5.0); ANION GAP 8.1 (8-16); CARBON DIOXIDE 35.2 mmol/L (21-32); POTASSIUM 3.3 mmol/L (3.5-5.1); TOTAL BILIRUBIN 0.6 mg/dL (0.0-1.0)
[2022-01-09 17:49] LABS: CREATININE 0.8 mg/dL (0.6-1.3)
--- NOTE | 2022-01-09 19:19 | NUR ---
Patient does not wish to proceed with medical care recommended by brandi seaman. Patient given information related to possible complications, up to and including , which could occur as a result of leaving hospital at this time. Patient verbalizes understanding of risks involved leaving against medical advice. Patient has signed AMA form.
--- NOTE | 2022-01-09 20:38 | NUR ---
Patient transported back to her place by her family.
== END 2022-01-09 19:11 | disposition left against medical advice (07) ==
LOC: MED 16:31
DX: J44.1 Chronic obstructive pulmonary disease with (acute) exacerbation (principal); Z20.822 Contact with and (suspected) exposure to COVID-19; R65.20 Severe sepsis without septic shock; F17.210 Nicotine dependence, cigarettes, uncomplicated; I11.0 Hypertensive heart disease with heart failure; I50.9 Heart failure, unspecified; Z71.6 Tobacco abuse counseling; Z79.84 Long term (current) use of oral hypoglycemic drugs; Z79.899 Other long term (current) drug therapy; Z88.0 Allergy status to penicillin; Z88.6 Allergy status to analgesic agent
CPT/HCPCS: 36415; 71045; 80053; 82550; 83605; 83880; 84484; 85025; 87040; 87426; 93005; 94640; 99291; 99292; J3490; J7060; J7613; Q0092

== ENCOUNTER 2022-02-20 22:25 | Emergency (ER) | payer OTHER ==
[~2022-02-20] VITALS: Ht 165.1 cm; Wt 56.7 kg
[2022-02-20 22:25] VITALS: BP 157/107
[~2022-02-20 22:25] MED LIST changes: -AZIT250T11 PO; -HALO1TAB99 PO; -LEVO-481 PO; +LEVO750T75 PO; -LOPE-289 PO; -MSCON30 PO; -PRED10TA5 PO; -ROBAC PO
--- NOTE | 2022-02-20 22:30 | NUR ---
Pt BIBA ALS coming from home c/o sob, cough, and congestion. Smokes a pack of cigarettes for the pst 30 years. No chest pain. Deneis n/v. A&Ox4. Skin intatct. Pt has hx of COPD, Asthma and anxiety. Allergic to Penicillin and aspirin. Medics gave pt a breathing tx and benadryl 50mg in route. VSS.
[2022-02-20] MEDS ORDERED: methylPREDNISolone SS 125 MG/2 ML VIAL IVP ONE (22:35)
[2022-02-20] MEDS ORDERED: ALBUTEROL SULFATE/IPRATROPIU 3 ML SOL IH ONE (22:35)
[2022-02-20] MEDS ORDERED: diphenhydrAMINE 50 MG/ML VIAL IVP ONE (22:40)
[2022-02-20] MEDS ORDERED: FAMOTIDINE 20 MG/2 ML VIAL IVP ONE (22:40)
--- NOTE | 2022-02-20 22:43 | NUR ---
Dr. Rico at bedside examining pt.
--- NOTE | 2022-02-20 22:45 | NUR ---
RT at bedside.
--- NOTE | 2022-02-20 22:56 | NUR ---
EKG being done at bedside.
--- NOTE | 2022-02-20 23:00 | NUR ---
Patient sitting in chair, A/Ox4, chest rise and fall symmetrical, no s/s of distress.
[2022-02-20] MEDS ORDERED: methylPREDNISolone SS 125 MG/2 ML VIAL IM ONE (23:05)
[2022-02-20] MEDS ORDERED: FAMOTIDINE 20 MG TAB PO ONE (23:05)
[2022-02-20 23:09] LABS: BASOPHILS # (AUTO) 0.1 K/uL (0.00-0.22); BASOPHILS % (AUTO) 0.3 % (0.0-2.0); EOSINOPHILS # (AUTO) 0.3 K/uL (0-0.4); EOSINOPHILS % (AUTO) 1.8 % (0.0-4.0); HEMATOCRIT 38.6 % (36-48); HEMOGLOBIN 12.1 g/dL (12.0-16.0); LYMPHOCYTES # (AUTO) 0.7 K/uL (2.5-16.5); LYMPHOCYTES % (AUTO) 3.9 % (20.5-51.1); MEAN CORPUSCULAR HEMOGLOBIN 26 pg (27-31); MEAN CORPUSCULAR HGB CONC 31 g/dL (33-37); MEAN CORPUSCULAR VOLUME 82.7 fL (80-94); MONOCYTES # (AUTO) 1.1 K/uL (0.8-1.0); MONOCYTES % (AUTO) 5.7 % (1.7-9.3); NEUTROPHILS # (AUTO) 16.6 K/uL (1.8-7.7); NEUTROPHILS % (AUTO) 88.3 % (42.2-75.2); PLATELET COUNT (AUTO) 156 K/uL (140-450); RED BLOOD CELL COUNT(AUTO) 4.66 MIL/uL (4.20-5.40); RED CELL DISTRIBUTION WIDTH 19.7 % (11.6-13.7); WHITE BLOOD COUNT (AUTO) 18.8 K/uL (4.8-10.8)
[2022-02-20 23:31] LABS: ALBUMIN 3.2 g/dL (3.4-5.0); ANION GAP 11.4 (8-16); CARBON DIOXIDE 35.5 mmol/L (21-32); CREATININE 0.9 mg/dL (0.6-1.3); POTASSIUM 4.9 mmol/L (3.5-5.1); TOTAL BILIRUBIN 0.4 mg/dL (0.0-1.0)
[2022-02-21] MEDS ORDERED: NACL 0.9% 1,500 ML IV ONE (00:10)
[2022-02-21 00:20] VITALS: BP 125/87
--- NOTE | 2022-02-21 00:20 | NUR ---
Patient stated she "wants to leave," and "Fuck off, I hate this place." AMA form completed.
--- NOTE | 2022-02-21 00:35 | NUR ---
Carlos Manuel martins in ED - 02/21/22 at 0125 by [id number] Patient sitting in chair, A/Ox4, chest rise and fall symmetrical, no s/s of distress.
[2022-02-21] MEDS ORDERED: ALBUTEROL SULFATE/IPRATROPIU 3 ML SOL IH ONE (00:40)
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
== END 2022-02-21 01:16 | disposition left against medical advice (07) ==
LOC: MED 22:25
DX: J44.1 Chronic obstructive pulmonary disease with (acute) exacerbation (principal); Z20.822 Contact with and (suspected) exposure to COVID-19; J18.9 Pneumonia, unspecified organism; J45.909 Unspecified asthma, uncomplicated; I10 Essential (primary) hypertension; I50.9 Heart failure, unspecified; E11.9 Type 2 diabetes mellitus without complications; Z79.4 Long term (current) use of insulin; Z79.899 Other long term (current) drug therapy; Z88.0 Allergy status to penicillin
CPT/HCPCS: 36415; 71045; 80053; 84484; 85025; 87426; 94640; 96372; 99285; J2930